=== PATIENT | male | born 1995 | race Two or more races ===

== ENCOUNTER 2017-03-11 21:57 | Inpatient (IN) | payer MEDICAID, OTHER ==
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
[2017-03-12] MEDS ORDERED: MAG HYDROX/AL HYDROX/SIMETH 30 ML CUP PO PRN (01:24)
[2017-03-12] MEDS ORDERED: ZIPRASIDONE 20 MG VIAL IM PRN (01:26)
[2017-03-12] MEDS ORDERED: LORazepam 2 MG/ML INJ IM PRN (02:04)
[2017-03-12] MEDS ORDERED: MAGNESIUM HYDROXIDE 2,400 MG/10 ML CUP PO PRN (02:08)
[2017-03-12] MEDS ORDERED: ACETAMINOPHEN TAB 325 MG TAB PO PRN (02:10)
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
[2017-03-12] MEDS: NICOTINE 14MG/24HR PATCH TRANSDERM SCH (08:53)
[2017-03-12 09:00] VITALS: BMI 20.9
[2017-03-13] MEDS: SERTRALINE 50 MG TAB PO SCH (08:33)
[2017-03-13] MEDS: NICOTINE 14MG/24HR PATCH TRANSDERM SCH (08:33)
[2017-03-13 08:59] LABS: Basophils # (A) 0.1 k/uL (0-0.2); Basophils % (A) 1 %; CH 31.1; Eosinophils # (A) 0.3 k/uL (0-0.7); Eosinophils % (A) 3 %; HCT 44.3 % (39.0-53.0); HDW 2.24; HGB 14.5 gm/dL (13.0-17.5); Luc # (Auto) 0.25; Luc % (Auto) 3; Lymphocytes # (A) 3.9 k/uL (1.0-4.8); Lymphocytes % (A) 43 %; MCHC 32.7 g/dL (31.0-37.0); MCV 94.6 fL (80.0-100.0); Mean Platelet Volume 7.1; Monocytes # (A) 0.6 k/uL (0-1.0); Monocytes % (A) 7 %; Neutrophils % (A) 44 %; RBC 4.68 m/uL (4.30-5.90); RDW 11.7 % (11.5-15.5); WBC 9.1 k/uL (4.0-11.0); WBC (Perox) 9.24
[2017-03-13 09:02] LABS: ALT 48 U/L (21-72); AST 21 U/L (17-59); Alkaline Phosphatase 54 U/L (38-126); Anion Gap 11 mmol/L; Blood Urea Nitrogen 14 mg/dL (9-20); Calcium 9.7 mg/dL (8.4-10.2); Carbon Dioxide 25 mmol/L (22-30); Chloride 105 mmol/L (98-107); Glucose 90 mg/dL (74-99); Non-African American GFR(MDRD) >60 (>60 ml/min/1.73 sqM); Potassium 4.3 mmol/L (3.5-5.1); Sodium 141 mmol/L (137-145); Total Bilirubin 0.6 mg/dL (0.2-1.3); Total Protein 7.2 g/dL (6.3-8.2)
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
[2017-03-14] MEDS: NICOTINE 14MG/24HR PATCH TRANSDERM SCH (09:23)
[2017-03-14] MEDS: SERTRALINE 50 MG TAB PO SCH (09:23)
--- NOTE | 2017-03-15 02:46 | P.PN ---
Progress Note - Text Progress Note Date: 03/13/17 rayna Note - Text Progress Note Date: 03/13/17 Vital Signs Temp 97.9 F 03/13/17 06:13 Pulse 57 L 03/13/17 06:13 Resp 15 03/13/17 06:13 BP 109/67 03/13/17 06:13 Pulse Ox 100 03/12/17 01:25 Intake & Output 03/12/17 03/13/17 03/13/17 18:59 06:59 18:59 Weight 68.039 kg Interval History: Patient interviewed privately. He continues to report having a "strange vibe" that is unwanted and disliked by treatment team specifically attending although he states he cannot explain why. Patient reports he reflected upon yesterday's days interview and feels he has discovered a lot about himself. He states that he now thinks of his cousin for example in a different fashion and otherwise would want to kill him. Patient continues to express feeling s of self doubt and self loathing. He has great difficulty and is very resistant to discussion of processing past trauma with Janki, admitting his faults, accepting them, and moving forward. Patient's transference is notable in this interview with patient engaging in a variety of defenses throughout the interview mainly projection and intellectualization making it difficult to make any substantive progress in the short time available in the inpatient setting. Additional time was set aside for patient, and eventually began to show some developing insight. Mental Status Exam: Appearance: alert, well groomed, appears stated age, steady gait Behavior: no psychomotor agitation+++, no abnormal movements, fair eye contact Attitude: cooperative Speech: normal rate, rhythm, fluency, articulation, volume, and prosody; primary language: Surinamese Mood: anxious Affect: labile Thought processes: linear, organized Thought content: patient does not appear to be responding to internal stimuli; patient denies questionable AH's, self-reported "delusions" that are not really delusions, no SI, HI Insight: poor Judgment: fair Cognitive: oriented to all 3 spheres, average intelligence Assessment and Plan (1) Post traumatic stress disorder (PTSD) Narrative/Plan: Continue Zoloft 50-mg PO QAM (2) Borderline personality disorder Discussed OP referral for formal psychotherapy specifically Dialectical Behavioral therapy Plan: Continue hospitalization, patients ego strength was challenged today and it is expected that he may decompensate over the next few days given the degree of trauma revealed in HPI, patient is at risk of acting impulsively and injuring himself or others in this heightened emotional state Patient encouraged to attend groups, recreational, and activity therapies to help develop and refine coping skills SW will arrange a family meeting and help develop a safe discharge plan
--- NOTE | 2017-03-15 03:16 | P.PN ---
Progress Note - Text Progress Note Date: 03/14/17 Vital Signs: Temp 98.1 F 03/14/17 06:14 Pulse 79 03/14/17 06:14 Resp 18 03/14/17 06:14 BP 135/60 03/14/17 06:14 Pulse Ox 100 03/12/17 01:25 Interval History: Patient found at nursing station and escorted to private room for interview. Patient wished to discuss coping strategies and exploring what patient needs to do to move forward in his life. Patient continues to show a more developing insight, but remains slightly paranoid but less so than previous exams. Patient has been attending groups. No emergency medications. Socializing well with peers. Mental Status Exam: Appearance: alert, well groomed, appears stated age, steady gait Behavior: no psychomotor agitation or psychomotor retardation, no abnormal movements, fair eye contact Attitude: cooperative Speech: normal rate, rhythm, fluency, articulation, volume, and prosody; primary language: Malagasy Mood: mildly anxious Affect: congruent, reactive Thought processes: linear, organized Thought content: patient does not appear to be responding to internal stimuli; patient denies auditory and visual hallucinations, no delusions appreciated Insight: fair Judgment: fair Cognitive: oriented to all 3 spheres, average intelligence Plan: Continue hospitalization continue Zoloft 50-mg PO QAM SW will place referral for DBT today Provisional discharge on 03/17/2017
[2017-03-15 06:39] VITALS: RESP 16
[2017-03-15] MEDS: SERTRALINE 50 MG TAB PO SCH (08:16)
[2017-03-15] MEDS: NICOTINE 14MG/24HR PATCH TRANSDERM SCH ×2 (08:16→18:50)
[2017-03-15] MEDS: LORazepam 1 MG TAB PO PRN ×2 (13:37→22:02)
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
[2017-03-15 19:30] LABS: Appearance,Urine Clear (Clear); Bilirubin,Urine Negative (Negative); Glucose,Urine (UA) Negative (Negative); Ketones,Urine Negative (Negative); Leukocyte Esterase,Urine Negative (Negative); Nitrite,Urine Negative (Negative); Protein,Urine Trace (Negative); Specific Gravity,Urine 1.022 (1.001-1.035); UA Billing (MACRO vs. MICRO) CHEM; Urobilinogen,Urine <2.0 mg/dL (<2.0)
[2017-03-16] MEDS: NICOTINE 14MG/24HR PATCH TRANSDERM SCH (09:05)
[2017-03-16] MEDS: SERTRALINE 50 MG TAB PO SCH (09:06)
[2017-03-16] MEDS: LORazepam 1 MG TAB PO PRN (14:44)
--- NOTE | 2017-03-16 18:56 | P.PN ---
Progress Note - Text Progress Note Date: 03/16/17 Interval history: Patient seen in cross coverage again today for Dr. Wetzel. He reports that his mood is improved. He feels like the Zoloft is working well for him. The Ativan has helped his anxiety level. He does describe today feeling some aspects of social anxiety as well as generalized anxiety. She does feel he'll be ready for discharge tomorrow. Mental status exam: He is alert and cooperative with the interview. His speech is fluent, not rapid or pressured. Thought processes are organized. His mood is improved. He denies any thoughts of harm to self or others. He does not show any active evidence of psychosis. Does not show any agitation. Plan: Patient be maintained on current psychotropic medication regimen. We will look for discharge planning for tomorrow. Dr. Wetzel to resume care this patient starting tomorrow.
[2017-03-17 06:59] VITALS: BP 102/52; PULSE 79; TEMP 98.6
[2017-03-17] MEDS: SERTRALINE 50 MG TAB PO SCH (09:41)
[2017-03-17] MEDS: NICOTINE 14MG/24HR PATCH TRANSDERM SCH (09:41)
[2017-03-17] MEDS: LORazepam 1 MG TAB PO PRN (09:42)
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
== END 2017-03-17 19:12 | disposition home or self-care (01) | DRG 883 ==
LOC: EC 21:57 → 3MHU 03-12 01:18
PROVIDERS: ADMIT Psychiatry & Neurology Psychiatry; ATTEND Psychiatry & Neurology Psychiatry
DX: F60.3 Borderline personality disorder (principal); R45.850 Homicidal ideations; R45.851 Suicidal ideations; F31.10 Bipolar disorder, current episode manic without psychotic features, unspecified; F43.10 Post-traumatic stress disorder, unspecified; F17.200 Nicotine dependence, unspecified, uncomplicated; Z62.810 Personal history of physical and sexual abuse in childhood; F90.9 Attention-deficit hyperactivity disorder, unspecified type; F41.0 Panic disorder [episodic paroxysmal anxiety]; F40.10 Social phobia, unspecified; F12.90 Cannabis use, unspecified, uncomplicated; Z81.8 Family history of other mental and behavioral disorders; Z81.1 Family history of alcohol abuse and dependence
CPT/HCPCS: 80053; 80306; 81003; 82075; 84443; 85025; 99285

== ENCOUNTER 2017-06-06 00:33 | Inpatient (IN) | payer MEDICAID, OTHER ==
[2017-06-06 01:24] LABS: Amphetamine Screen,Urine Not Detected (NotDetected); Benzodiazepines Screen,Urine Not Detected (NotDetected); Cocaine Screen,Urine Not Detected (NotDetected); Opiate Screen,Urine Not Detected (NotDetected); Phencyclidine Screen,Urine Not Detected (NotDetected); Urn Cannabinoid Scrn Detected (NotDetected)
[2017-06-06 01:25] LABS: Barbiturate Screen,Urine Not Detected (NotDetected); Methadone Screen, Urine Not Detected (NotDetected); Oxycodone Screen, Urine Not Detected (NotDetected); Tricyclic Antidepressant,Urine Not Detected (NotDetected)
--- NOTE | 2017-06-06 01:42 | ED ---
Psych HPI - General Chief Complaint: Psychiatric Symptoms Stated Complaint: Mental Health Time Seen by Provider: 06/06/17 00:41 Source: patient, RN notes reviewed Mode of arrival: ambulatory Limitations: no limitations - History of Present Illness Initial Comments: 22-year-old male presents emergency Department with chief complaint of psychiatric issues. Patient states she has a long history of mental health issues. Patient states he is here for better understanding of his problems along with his father. Patient states that he's been diagnosed with borderline personality disorder states he normally takes Neurontin but recently stopped last 5 days or so. He states that he tried to drink himself to sleep the other day and states that he also believed his grandmother was trying to poison him of the night and he believes this was related to a panic attack. Patient states she is not suicidal or homicidal. He denies any physical complaints denies any illicit drug use and states he only occasionally uses alcohol. - Related Data Home Medications Medication Instructions Recorded Confirmed No Known Home Medications [No 06/06/17 06/06/17 Known Home Medications] Allergies Allergy/AdvReac Type Severity Reaction Status Date / Time No Known Allergies Allergy Verified 06/06/17 00:40 Review of Systems ROS Statement: Those systems with pertinent positive or pertinent negative responses have been documented in the HPI. ROS Other: All systems not noted in ROS Statement are negative. Past Medical History Past Medical History: No Reported History History of Any Multi-Drug Resistant Organisms: None Reported Past Surgical History: No Surgical Hx Reported Past Psychological History: ADD/ADHD, Anxiety, Bipolar, Depression, Panic Disorder, Schizoaffective Disorder Smoking Status: Current every day smoker Past Alcohol Use History: None Reported Past Drug Use History: Marijuana General Exam Limitations: no limitations General appearance: alert, in no apparent distress Head exam: Present: atraumatic, normocephalic, normal inspection Eye exam: Present: normal appearance, PERRL, EOMI. Absent: scleral icterus, conjunctival injection, periorbital swelling ENT exam: Present: normal exam, normal oropharynx, mucous membranes moist, TM's normal bilaterally, normal external ear exam Neck exam: Present: normal inspection, full ROM. Absent: tenderness, meningismus, lymphadenopathy Respiratory exam: Present: normal lung sounds bilaterally. Absent: respiratory distress, wheezes, rales, rhonchi, stridor Cardiovascular Exam: Present: regular rate, normal rhythm, normal heart sounds. Absent: systolic murmur, diastolic murmur, rubs, gallop, clicks Neurological exam: Present: alert, oriented X3, CN II-XII intact Psychiatric exam: Present: anxious Skin exam: Present: warm, dry, intact, normal color. Absent: rash Course Vital Signs 06/06/17 00:37 Temperature 97.8 F Pulse Rate 78 Respiratory 18 Rate Blood Pressure 157/70 O2 Sat by Pulse 98 Oximetry Medical Decision Making - Lab Data Lab Results 06/06/17 Range/Units 01:08 Urine Opiates Screen Not Detected (NotDetected) Ur Oxycodone Screen Not Detected (NotDetected) Urine Methadone Screen Not Detected (NotDetected) Ur Propoxyphene Screen Not Detected (NotDetected) Ur Barbiturates Screen Not Detected (NotDetected) U Tricyclic Antidepress Not Detected (NotDetected) Ur Phencyclidine Scrn Not Detected (NotDetected) Ur Amphetamines Screen Not Detected (NotDetected) U Methamphetamines Scrn Not Detected (NotDetected) U Benzodiazepines Scrn Not Detected (NotDetected) Urine Cocaine Screen Not Detected (NotDetected) U Marijuana (THC) Screen Detected H (NotDetected) Disposition Clinical Impression: Psychosis Disposition: ADMITTED IP TO THIS [facility] Condition: Stable Referrals: Rambo Terry MD [Primary Care Provider] - 1-2 days
[2017-06-06] MEDS ORDERED: MAGNESIUM HYDROXIDE 2,400 MG/10 ML CUP PO PRN (05:14)
[2017-06-06] MEDS ORDERED: ACETAMINOPHEN TAB 325 MG TAB PO PRN (05:14)
[2017-06-06] MEDS ORDERED: MAG HYDROX/AL HYDROX/SIMETH 30 ML CUP PO PRN (05:14)
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
[2017-06-06] MEDS ORDERED: OLANZapine ODT 10 MG TAB PO PRN (06:35)
[2017-06-06] MEDS: NICOTINE 14MG/24HR PATCH TRANSDERM SCH (09:21)
[2017-06-06] MEDS: ESCITALOPRAM 10 MG TAB PO SCH (10:10)
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
[2017-06-07] MEDS: NICOTINE 14MG/24HR PATCH TRANSDERM SCH (08:47)
[2017-06-07] MEDS: ESCITALOPRAM 10 MG TAB PO SCH (08:47)
[2017-06-07 08:55] LABS: Basophils # (A) 0.1 k/uL (0-0.2); Basophils % (A) 1 %; Eosinophils # (A) 0.3 k/uL (0-0.7); Eosinophils % (A) 4 %; HCT 43.3 % (39.0-53.0); HGB 14.5 gm/dL (13.0-17.5); Lymphocytes # (A) 3.5 k/uL (1.0-4.8); Lymphocytes % (A) 38 %; MCH 30.7 pg (25.0-35.0); MCHC 33.5 g/dL (31.0-37.0); MCV 91.6 fL (80.0-100.0); Mean Platelet Volume 6.8; Monocytes # (A) 0.7 k/uL (0-1.0); Monocytes % (A) 8 %; Neutrophils # (A) 4.3 k/uL (1.3-7.7); Neutrophils % (A) 47 %; Platelet Count 363 k/uL (150-450); RBC 4.72 m/uL (4.30-5.90); RDW 11.5 % (11.5-15.5); WBC 9.2 k/uL (3.8-10.6)
[2017-06-07 09:14] LABS: ALT 38 U/L (21-72); AST 25 U/L (17-59); Albumin 4.6 g/dL (3.5-5.0); Alkaline Phosphatase 67 U/L (38-126); Anion Gap 11 mmol/L; Blood Urea Nitrogen 13 mg/dL (9-20); Carbon Dioxide 29 mmol/L (22-30); Chloride 102 mmol/L (98-107); Glucose 99 mg/dL (74-99); Sodium 142 mmol/L (137-145); Total Protein 7.6 g/dL (6.3-8.2)
--- NOTE | 2017-06-07 12:25 | P.PN ---
Progress Note - Text interval history: The patient is found at the front desk attendant he follows me to an interview room. He reports that he took the Lexapro and felt angry and he felt paranoid. He states that some of the staff may try to harm him. He feels that the staff are "gas lighting me". In general he has a feeling that he will be harmed. He indicates he slept 9 hours staff recorded he slept 5 hours. He indicates his appetite stable. He is observed attending group this morning. Mental status exam: The patient is alert he seated calmly in the chair he maintains a bland affect. He endorses feelings of irritability suspiciousness and paranoia. He is reporting no suicidal or homicidal ideation. Mood is depressed. He demonstrates no verbal or physical aggressiveness. No abnormal involuntary movements. Insight and judgment are impaired. Plan: The patient will continue on the Lexapro we will add Abilify 10 mg daily to address symptoms of psychosis. During treatment team staff shared that he appeared to have some psychosis with his last admission. We will monitor him for safety and encourage his participation in the milieu.
[2017-06-07] MEDS: ARIPiprazole 10 MG TAB PO SCH (15:32)
[2017-06-08] MEDS: NICOTINE 14MG/24HR PATCH TRANSDERM SCH (08:49)
[2017-06-08] MEDS: ARIPiprazole 10 MG TAB PO SCH (08:49)
[2017-06-08] MEDS: ESCITALOPRAM 10 MG TAB PO SCH (08:49)
--- NOTE | 2017-06-08 15:45 | P.PN ---
Progress Note - Text Interval history: The patient is found in the hallway he follows me to an interview room. He indicates that his medication may be making him feel tired throughout the day. We discussed that it may be the Abilify and we could move that to a bedtime dosing. He continues to describe having suspicious thoughts that people are stalking him or watching him. He describes some obsessional thinking.he reports he had an outburst yesterday but does not wish to discuss that further. Mental status exam: The patient is a thin male he seated calmly he is dressed in his own clothing hygiene grooming adequate. He has spontaneous speech she is verbose he is directable however. He continues to demonstrate paranoid thinking as others may be stalking him or trying to harm him. He describes some obsessional thoughts involving his sister. Insight and judgment are impaired. He is reporting no acute suicidal or homicidal ideation here in the hospital. He demonstrates no verbal or physical aggressiveness. Plan: The patient will continue on his current medications however we will change the timing of the Abilify to bedtime. We will monitor him for safety. We will consider titrating the Abilify further if needed. He is encouraged to continue participating in the milieu.
[2017-06-08] MEDS: LORazepam 1 MG TAB PO PRN (20:03)
[2017-06-09] MEDS: ESCITALOPRAM 10 MG TAB PO SCH (08:29)
[2017-06-09] MEDS: LORazepam 1 MG TAB PO PRN ×2 (08:29→19:06)
[2017-06-09] MEDS: NICOTINE 14MG/24HR PATCH TRANSDERM SCH (08:29)
--- NOTE | 2017-06-09 11:37 | P.PN ---
Progress Note - Text Interval history: The patient is found in group he follows me to an interview room. He reports having difficulty sleeping last night subsequently he feels tired. We reviewed his medications the Lexapro and the Abilify. We have move the Abilify so that he will be getting that in the evening. He states he had a troubling visit with his family last evening he states that his mother can be manipulative and twists his words. He feels his father doesn't believe him. He cites an example of when he told his father he thought his father's friend was trying to kill him and his father did not believe this was true. The patient has been attending meals he is participating in groups. Staff report that he is demonstrating no agitated behavior. Mental status exam: The patient is alert he seated calmly in the chair he finds himself frustrated today after the visit with his family. He continues to have some suspicious and paranoid thinking. He feels safe here in the hospital and is endorsing no acute suicidal or homicidal ideation. He does lack insight into his suspicious thoughts. He is oriented to person place and date he demonstrates no verbal or physical aggressiveness. He maintains a bland affect throughout the session. He is dressed in his own clothing he is wearing a dark hooded sweatshirt with his alvares up. Hygiene grooming adequate. Plan: The patient's will continue on the medications as prescribed we will consider titrating the Abilify further if needed. We will monitor him for safety and especially monitor for symptoms of psychosis. Vital signs reviewed.
[2017-06-09] MEDS: ARIPiprazole 10 MG TAB PO SCH (20:35)
[2017-06-10] MEDS: NICOTINE 14MG/24HR PATCH TRANSDERM SCH (09:41)
[2017-06-10] MEDS: ESCITALOPRAM 10 MG TAB PO SCH (09:41)
[2017-06-10] MEDS: LORazepam 1 MG TAB PO PRN (09:43)
[2017-06-10] MEDS ORDERED: hydrOXYzine PAMOATE 25 MG CAP PO PRN (10:03)
--- NOTE | 2017-06-10 10:06 | P.PN ---
Progress Note - Text Interval history: The patient is found in his room he follows me to an interview room. He reports feeling tired this morning but slept well last night. We discussed that the Ativan could be causing some feelings of sedation. We discussed that the Ativan is a temporary measure and we should consider using that less often while on the mental health unit. We discussed using Vistaril as needed for anxiety and he is agreeable. His questions regarding Lexapro and Abilify were answered. He continues to attend groups he feels his symptoms are improving. Mental status exam: The patient is alert he is dressed in his own clothing eye contact is appropriate. Affect remains constricted. He is reporting no acute suicidal or homicidal ideation. There is no spontaneous report of paranoid or persecutory thoughts. However that suspiciousness still exists. Insight and judgment slowly improving. He is demonstrating no verbal or physical aggressiveness. He is demonstrating no abnormal involuntary movements. He continues to ask several questions regarding his treatment as an outpatient specifically related to CBT. Plan: The patient will continue on the Abilify and Lexapro is written. We will initiate Vistaril 25 mg up to twice daily as needed for anxiety. We will continue to monitor him for safety and encourage his participation in the milieu. We will discuss his progress during treatment team meeting.
[2017-06-10] MEDS: ARIPiprazole 10 MG TAB PO SCH (20:04)
[2017-06-11] MEDS: NICOTINE 14MG/24HR PATCH TRANSDERM SCH (08:59)
[2017-06-11] MEDS: ESCITALOPRAM 10 MG TAB PO SCH (09:00)
[2017-06-11] MEDS: LORazepam 1 MG TAB PO PRN (09:01)
--- NOTE | 2017-06-11 10:28 | P.PN ---
Progress Note - Text Interval history: The patient is found in group he follows me to an interview room. He reports still feeling tired and believes it's because of the Lexapro we discussed switching that to a bedtime dosing and he is agreeable. We discussed titrating the Abilify further to a therapeutic dose of 15 mg and he is agreeable. He does continue to have some obsessive thinking but feels that improving. Staff report he slept proxy 6 hours last evening. He is reporting improvement of his mood and feeling less hopeless. Mental status exam: The patient is alert he seated calmly in his chair eye contact is appropriate. Speech is fluent and spontaneous. Affect is constricted. He demonstrates no verbal or physical aggressiveness. He is reporting no acute suicidal or homicidal ideation intent or plan. He does not appear hypomanic or manic. He continues to have some of his suspicious thinking but does not speak of it spontaneously. He reports having some obsessive thinking still but feels it is improving. Insight and judgment slowly improving. Plan: The patient will continue on the Abilify we will titrate to 15 mg daily which I feel will be more therapeutic. Lexapro will be moved to bedtime as he reports it makes him feel tired during the day. During treatment team meeting we will discuss any input from his parents regarding his current status. We will consider discharging him by the end of the week if clinically stable.
[2017-06-11] MEDS ORDERED: ARIPiprazole 15 MG TAB PO SCH (21:00)
[2017-06-12 07:07] VITALS: BP 107/60; PULSE 65; RESP 16; TEMP 98.7
[2017-06-12] MEDS: NICOTINE 14MG/24HR PATCH TRANSDERM SCH (08:48)
--- NOTE | 2017-06-12 11:04 | P.DS ---
Providers Date of admission: 06/06/17 03:13 Expected date of discharge: 06/12/17 Attending physician: Agustin Rome Consults: 06/06/17 05:14 Consult Physician Routine Consulting Provider: Gabriela Moran Consult Reason/Comments: medical management Do you want consulting provider notified?: Already Contacted Primary care physician: Rambo Terry - Discharge Diagnosis(es) (1) Unspecified psychosis Current Visit: Yes Status: Acute Priority: High (2) Depression Current Visit: Yes Status: Acute Priority: High (3) Post traumatic stress disorder (PTSD) Current Visit: No Status: Acute Priority: Medium Hospital Course: Brief summary of admission note: This patient is a 22-year-old single male who was admitted to the mental health unit through the emergency room with symptoms of psychosis and suicidal ideation. The patient presented to the emergency room and was found to have bizarre thinking was suicidal ideation. The patient had stopped his psychotropic medication and had not been attending community mental health appointments. He endorsed a depressed mood with tearfulness. He described having suspicious thoughts related to his grandmother. He felt she was being seductive and may have poison his orange juice. For full details please refer to the psychiatric evaluation dictated 09/2017. Summary of hospital course: The patient was admitted to the mental health unit he signed in voluntarily. We reviewed his presenting symptoms and medication options. He was initially started on Lexapro 10 mg daily for depressive symptoms. Abilify was initiated to treat symptoms of psychosis and this can also augment the antidepressant effects of Lexapro. The dose of Abilify was titrated to 15 mg daily during the course of the hospitalization. The patient was able to tolerate the medication. He reported some feelings of tiredness with them and they were both moved to bedtime which addressed the issue. He reported progressive improvement of mood while here on the mental health unit. He reports a complete resolution of any suicidal ideation. He feels his mood is much improved. He never endorsed any thoughts of harming anyone. He is endorsing no hallucinations. His suspicious and paranoid thoughts have reduced. He no longer spontaneously speaks of paranoid thinking. He was amenable to having family involved in the discharge process. His stepmother is scheduled to participate in a support meeting this afternoon. Mental status exam: The patient is alert he seated calmly in his chair he is dressed in his own clothing. He is attentive to the interview. He reports his mood is "good". He states "it has been several years since I have felt this well". He is reporting no suicidal or homicidal ideation intent or plan. He is endorsing no auditory or visual hallucinations. He spontaneously reports no paranoid or persecutory thoughts. When questioned further he states that those suspicious thoughts have reduced significantly. He indicates that he feels safe around his grandmother and stepmother and other family members. Thought process is linear he demonstrates no tangential thinking loose associations or flight of ideas. He does not appear hypomanic or manic at this time. He is oriented to person place and date. He demonstrates future oriented thinking including a willingness to work with outpatient therapists and he is hoping to utilize CBT. Impressions 1. Psychosis unspecified, depression unspecified, rule out major depressive disorder severe with psychosis versus a primary psychotic etiology, history of PTSD 2. Rule out cluster B traits Plan: The patient will be discharged from mental health unit today following a successful support meeting with his stepmother. The patient will continue on Abilify 15 mg at bedtime Lexapro 10 mg at bedtime. He is instructed to abstain from alcohol marijuana and any other illicit drug. He is aware that use of these substances can elevate safety risk. He will dress his use of substances as an outpatient he does not wish to pursue inpatient chemical dependency for his use of marijuana. There is no imminent safety risk he is appropriate for transition to outpatient care. He is instructed he may return to the hospital with any acute safety concerns. Patient Condition at Discharge: Stable Plan - Discharge Summary New Discharge Prescriptions: New ARIPiprazole [Abilify] 15 mg PO HS #30 tab Escitalopram [Lexapro] 10 mg PO HS #30 tab Nicotine 14Mg/24Hr Patch [Habitrol] 1 patch TRANSDERM DAILY #12 patch Discontinued busPIRone HCL [busPIRone HCL] 10 mg PO TID Gabapentin [Neurontin] 300 mg PO BID Discharge Medication List ARIPiprazole [Abilify] 15 mg PO HS #30 tab 06/12/17 [Rx] Escitalopram [Lexapro] 10 mg PO HS #30 tab 06/12/17 [Rx] Nicotine 14Mg/24Hr Patch [Habitrol] 1 patch TRANSDERM DAILY #12 patch 06/12/17 [ Rx] Follow up Appointment(s)/Referral(s): [facility] [Outside] - 06/13/17 10:00 am (06/13/17 @ 10 A.M. with Yanira Billings 07/03/17 @ [address] Thompson) Rambo Terry MD [Primary Care Provider] - 1-2 days
[2017-06-12] MEDS: LORazepam 1 MG TAB PO PRN (11:43)
[2017-06-12] MEDS ORDERED: ESCITALOPRAM 10 MG TAB PO SCH (21:00)
== END 2017-06-12 14:50 | disposition home or self-care (01) | DRG 885 ==
LOC: EC 00:33 → 3MHU 03:13
PROVIDERS: ADMIT Psychiatry & Neurology Psychiatry; ATTEND Psychiatry & Neurology Psychiatry
DX: F32.3 Major depressive disorder, single episode, severe with psychotic features (principal); F25.9 Schizoaffective disorder, unspecified; R45.851 Suicidal ideations; F28 Other psychotic disorder not due to a substance or known physiological condition; F17.200 Nicotine dependence, unspecified, uncomplicated; F41.0 Panic disorder [episodic paroxysmal anxiety]; F43.10 Post-traumatic stress disorder, unspecified; F60.3 Borderline personality disorder; F90.9 Attention-deficit hyperactivity disorder, unspecified type; F12.90 Cannabis use, unspecified, uncomplicated; G47.9 Sleep disorder, unspecified; Z62.810 Personal history of physical and sexual abuse in childhood
CPT/HCPCS: 80053; 80306; 82075; 84443; 85025; 99285

== ENCOUNTER → 2020-02-21 | Outpatient (CLI) | payer OTHER | END | disposition home or self-care (01) | LOC: LABWHC1 10:11 | PROVIDERS: ATTEND Emergency Medicine | DX: Z20.828 Contact with and (suspected) exposure to other viral communicable diseases (principal) | CPT/HCPCS: U0003; C9803 ==